=== PATIENT | female | born 1985 | race Caucasian/White ===

== ENCOUNTER 2022-07-31 07:58 | Day surgery (SDC) | payer BC ==
[2022-07-30 15:59] VITALS: BMI 32.5
[2022-07-31 09:38] VITALS: RESP 18; TEMP 98
[2022-07-31 09:56] VITALS: BP 110/68; PULSE 75
== END 2022-07-31 10:00 | disposition home or self-care (01) ==
LOC: FASU-ENDO 07:58
PROVIDERS: ATTEND Internal Medicine Gastroenterology
PROC: 0DB68ZX Excision of Stomach, Via Natural or Artificial Opening Endoscopic, Diagnostic (ICD-10-PCS; principal; 2022-07-31 09:27)
DX: R93.3 Abnormal findings on diagnostic imaging of other parts of digestive tract (principal); K29.50 Unspecified chronic gastritis without bleeding
CPT/HCPCS: 81025; 82962; 88305-TC; 88342-TC

== ENCOUNTER 2022-08-01 09:31 | Day surgery (SDC) | payer BC ==
[2022-07-30 18:07] VITALS: BMI 32.5
[2022-08-01] MEDS ORDERED: BUPIVACAINE HCL/PF 0.25% (2.5MG/ML) 10 ML VIAL ONE (10:26)
[2022-08-01] MEDS ORDERED: PROPOFOL 20 ML ONE ×3 (10:43→15:21)
[2022-08-01] MEDS ORDERED: MIDAZOLAM HCL 2 MG/2 ML SINGLE DOSE VIAL ONE (10:43)
[2022-08-01] MEDS ORDERED: ROCURONIUM BROMIDE 50 MG/5 ML SYRINGE ONE ×3 (10:56→14:25)
[2022-08-01] MEDS ORDERED: LIDOCAINE HCL/PF 2% SDV 5ML VIAL ONE (11:20)
[2022-08-01] MEDS ORDERED: SEVOFLURANE 250 ML BTL ONE (11:23)
[2022-08-01] MEDS ORDERED: ceFAZolin SODIUM 1 GM VIAL ONE (11:32)
[2022-08-01] MEDS ORDERED: VASOPRESSIN 20 UNITS/ML VIAL IV ONE (13:00)
[2022-08-01] MEDS ORDERED: ACETAMINOPHEN INJECTION 100 ML IVPB ONE ×2 (13:02→16:34)
[2022-08-01] MEDS ORDERED: METHYLENE BLUE 50 MG/10 ML AMPUL ONE (14:37)
[2022-08-01] MEDS ORDERED: GLYCOPYRROLATE 0.2 MG/1 ML VIAL ONE (14:47)
[2022-08-01] MEDS ORDERED: NEOSTIGMINE METHYLSULFATE 0.5 MG/1 ML - 10 ML MDV ONE (14:47)
[2022-08-01] MEDS ORDERED: oxyCODONE HCL 5 MG TABLET PO PRN ×3 (15:46→16:02)
[2022-08-01] MEDS ORDERED: ONDANSETRON 4 MG/2 ML VIAL IVPUSH PRN (15:46)
[2022-08-01] MEDS ORDERED: SODIUM CHLORIDE 1,000 ML IV SCH (16:00)
[2022-08-01] MEDS ORDERED: PROMETHAZINE HCL 25 MG/1 ML VIAL IVPB PRN (16:02)
[2022-08-01] MEDS ORDERED: INSULIN (NOVOLOG) ASPART 100 UNITS/ML 10ML VIAL SQ ONE (16:03)
[2022-08-01] MEDS ORDERED: LACTATED RINGERS SOLUTION 1,000 ML IV SCH (16:15)
[2022-08-01] MEDS ORDERED: FENTANYL CITRATE/PF 50 MCG/ML VIAL ONE ×2 (16:20→16:34)
[2022-08-01 16:28] LABS: HEMATOCRIT 39.7 % (32.4-45.2); HEMOGLOBIN 13.7 G/dL (10.7-15.3); MCH 33.6 pg (25.7-33.7); MCHC 34.4 g/dl (32.0-36.0); MEAN CELL VOLUME 97.9 fl (80-96); MEAN PLT VOLUME 7.6 fl (7.5-11.1); PLATELET COUNT 260.1 10^3/uL (134-434); RBC 4.06 10^6/uL (3.60-5.2); RDW 13.2 % (11.6-15.6); WHITE BLOOD COUNT 18.3 10^3/uL (4.0-10.8)
[2022-08-01] MEDS ORDERED: ACETAMINOPHEN 1000 MG/100 ML BAG IVPB ONE (16:40)
[2022-08-01 16:42] LABS: ALBUMIN 3.2 g/dl (3.4-5.0); BILIRUBIN,TOTAL 0.4 mg/dl (0.2-1); CALCIUM 8.5 mg/dl (8.5-10); POTASSIUM 4.9 mmol/L (3.5-5.1); TOT PROT 5.9 g/dl (6.4-8.2)
[2022-08-01] MEDS ORDERED: ONDANSETRON 4 MG/2 ML VIAL ONE (16:49)
[2022-08-01] MEDS ORDERED: ENOXAPARIN NA (PORCINE) 40 MG/0.4 ML DISP.SYRIN SQ ONE ×3 (17:00→19:00)
[2022-08-01 17:05] VITALS: PULSE 80; RESP 16
[2022-08-01] MEDS ORDERED: FAMOTIDINE 20 MG/50 ML IVPB 20 MG/50 ML MG IVPB ONE (17:15)
[2022-08-01] MEDS ORDERED: FAMOTIDINE 20 MG PREMIXED IVPB IVPB ONE (17:23)
[2022-08-01 18:07] VITALS: BP 96/54; TEMP 98.4
[2022-08-01] MEDS ORDERED: FAMOTIDINE 20 MG/50 ML IVPB 20 MG/50 ML MG IVPB SCH (22:00)
== END 2022-08-01 19:10 | disposition home or self-care (01) ==
LOC: FASU 09:31
PROVIDERS: ATTEND Surgery
PROC: 0DV64CZ Restriction of Stomach with Extraluminal Device, Percutaneous Endoscopic Approach (ICD-10-PCS; principal; 2022-08-01 11:43)
DX: E66.01 Morbid (severe) obesity due to excess calories (principal); Z68.32 Body mass index [BMI] 32.0-32.9, adult; E11.9 Type 2 diabetes mellitus without complications; K66.0 Peritoneal adhesions (postprocedural) (postinfection)
CPT/HCPCS: 43770; C1889; 36415; 74240-TC-FY; 80053; 82962; 85027; 94760; Q9968